=== PATIENT | male | born 1990 | race Caucasian/White ===

== ENCOUNTER 2017-02-11 09:16 | Emergency (ER) | payer MEDICARE, MEDICAID ==
[2017-02-11 09:29] VITALS: BP 137/88; PULSE 97; RESP 20; TEMP 97.6; O2SAT 98
[2017-02-11 09:30] VITALS: BMI 22.4
--- NOTE | 2017-02-11 10:06 | ED PDOC ---
HPI: Back Time Seen by Provider: 02/11/17 09:36 Chief Complaint (Nursing): Back Pain Chief Complaint (Provider): Back Pain History Per: Patient History/Exam Limitations: no limitations Onset/Duration Of Symptoms: Days Current Symptoms Are (Timing): Still Present Quality Of Discomfort: "Pain" Severity: Moderate Previous Symptoms: None Associated Symptoms: None Exacerbating Factor(s): Movement Additional Complaint(s): Patient is a 27 year old male who presents to ED for back pain since yesterday. Patient states he was helping to move furniture, slipped with immediate left sided lower back pain. Evaluated initially at [facility] yesterday, prescribed Tramadol and Motrin but states no relief from medication. Denies urinary changes , radiation, numbness or weakness. Past Medical History Reviewed: Historical Data, Nursing Documentation, Vital Signs Vital Signs: Last Vital Signs Temp 97.6 F 02/11/17 09:28 Pulse 97 H 02/11/17 09:28 Resp 20 02/11/17 09:28 BP 137/88 02/11/17 09:28 Pulse Ox 98 02/11/17 09:28 - Medical History PMH: Asthma Denies: HTN (pt denies) - Surgical History Surgical History: No Surg Hx - Family History Family History: States: Unknown Family Hx - Living Arrangements Living Arrangements: With Family - Immunization History Hx Tetanus Toxoid Vaccination: Yes Hx Influenza Vaccination: No Hx Pneumococcal Vaccination: No - Home Medications Home Medications: Ambulatory Orders Medication Instructions Recorded Albuterol HFA [Ventolin HFA 90 1 puff IH BID PRN 11/24/16 mcg/actuation (8 g)] Montelukast [Singulair] 10 mg PO DAILY 11/24/16 Ibuprofen [Motrin Tab] 600 mg PO Q8 #30 tab 12/05/16 Ibuprofen [Motrin] 600 mg PO Q6 #25 tab 02/10/17 Cyclobenzaprine [Cyclobenzaprine 10 mg PO TID #30 tab 02/11/17 HCl] Ketorolac Tromethamine [Toradol] 10 mg PO Q6H PRN #19 tab 02/11/17 - Allergies Allergies/Adverse Reactions: Allergies Allergy/AdvReac Type Severity Reaction Status Date / Time cat dander Allergy Verified 12/05/16 19:32 FISH Allergy RASH Verified 12/05/16 19:32 Review of Systems ROS Statement: Except As Marked, All Systems Reviewed And Found Negative Constitutional: Negative for: Weakness Cardiovascular: Negative for: Chest Pain Respiratory: Negative for: Shortness of Breath Gastrointestinal: Negative for: Abdominal Pain Genitourinary Male: Negative for: Dysuria, Frequency, Incontinence Musculoskeletal: Positive for: Back Pain. Negative for: Leg Pain Neurological: Negative for: Weakness, Numbness Physical Exam - Reviewed Nursing Documentation Reviewed: Yes Vital Signs Reviewed: Yes - Physical Exam Appears: Positive for: Non-toxic, No Acute Distress Skin: Positive for: Normal Color, Warm Eye Exam: Positive for: Normal appearance Neck: Positive for: Normal, Painless ROM Cardiovascular/Chest: Positive for: Regular Rate, Rhythm. Negative for: Murmur Respiratory: Positive for: Normal Breath Sounds. Negative for: Respiratory Distress Gastrointestinal/Abdominal: Positive for: Normal Exam. Negative for: Tenderness Back: Positive for: L CVA Tenderness (mild), R CVA Tenderness (mild ), Other ( mild left paraspinal tenderness ). Negative for: Decreased ROM, Muscle Spasm Extremity: Positive for: Normal ROM. Negative for: Pedal Edema, Calf Tenderness Neurologic/Psych: Positive for: Alert, Oriented - Laboratory Results Urine dip results: Positive for: Leukocyte Esterase - ECG O2 Sat by Pulse Oximetry: 98 (RA) Pulse Ox Interpretation: Normal - Radiology X-Ray: Viewed By Me, Read By Radiologist X-Ray Interpretation: No Acute Disease - Progress Re-evaluation Time: 11:22 Condition: Re-examined, Improving,but remains with symptoms Medical Decision Making Medical Decision Making: Time: 944 Initial impression: Back pain Initial plan: -- Urine dip -- Lumbar Spine -- Flexeril and Toradol Scribe Attestation: Documented by Bia Adames acting as a scribe for Lea Pardo MD MD Scribe Attestation: All medical record entries made by the Scribe were at my direction and personally dictated by me. I have reviewed the chart and agree that the record accurately reflects my personal performance of the history, physical exam, medical decision making, and the department course for this patient. I have also personally directed, reviewed, and agree with the discharge instructions and disposition. Disposition - Clinical Impression Clinical Impression: Strain, back - Patient ED Disposition Is Patient to be Admitted: No Doctor Will See Patient In The: Office Counseled Patient/Family Regarding: Diagnosis, Need For Followup, Rx Given - Disposition Referrals: [facility] [Outside] [facility] [Outside] [facility] [Outside] Disposition: Routine/Home Disposition Time: 11:24 Condition: IMPROVED Prescriptions: Cyclobenzaprine [Cyclobenzaprine HCl] 10 mg PO TID #30 tab Ketorolac Tromethamine [Toradol] 10 mg PO Q6H PRN #19 tab PRN Reason: Pain, Moderate (4-7) Instructions: Back Exercises (ED) Forms: [facility] ED School/Work Excuse - POA Present On Arrival: None
--- NOTE | 2017-02-11 10:38 | RAD ---
PROCEDURE: Radiographs of the Lumbar Spine. HISTORY: left side strain since yesterday COMPARISON: None available. FINDINGS: BONES: Mild curvature of the lumbar spine convex to the left. No listhesis. No displaced fracture identified. DISC SPACES: Unremarkable. OTHER FINDINGS: Mild constipation. IMPRESSION: Mild scoliosis. No acute displaced fracture or subluxation identified. Mild constipation.
[2017-02-11 11:13] LABS: URINE BILIRUBIN NEGATIVE (NEGATIVE); URINE BLOOD NEGATIVE (NEGATIVE); URINE COLOR YELLOW (YELLOW); URINE GLUCOSE (UA) NEG (Normal); URINE KETONE NEGATIVE (NEGATIVE); URINE LEUKOCYTE ESTERASE LARGE Leu/uL (Negative); URINE PROTEIN NEGATIVE (NEGATIVE); URINE UROBILINOGEN 0.2-1.0 mg/dL (0.2-1.0); WBC URINE 8 /hpf (0-5)
== END 2017-02-11 11:52 | disposition home or self-care (01) ==
LOC: H.ER 09:16
DX: M54.9 Dorsalgia, unspecified (principal)
CPT/HCPCS: 72114; 81003; 96372; 99282; J1885

== ENCOUNTER 2017-02-24 00:06 | Emergency (ER) | payer MEDICARE, MEDICAID ==
[2017-02-24 00:06] VITALS: BMI 22.4
[2017-02-24 00:18] VITALS: BP 133/72; PULSE 95; RESP 18; TEMP 97.8; O2SAT 100
[2017-02-24] MEDS ORDERED: Albuterol-Ipratrop 3 mg / 0.5 (3 ml) UD IH STA ×2 (01:51→01:54)
--- NOTE | 2017-02-24 01:54 | ED PDOC ---
HPI: CCC, URI, Sore Throat Time Seen by Provider: 02/24/17 00:55 Chief Complaint (Nursing): Cough, Cold, Congestion Chief Complaint (Provider): flu-like symptoms History Per: Patient History/Exam Limitations: no limitations Onset/Duration Of Symptoms: Days (5) Current Symptoms Are (Timing): Still Present Additional History Per: Patient Additional Complaint(s): 27 y/o male history of asthma presents with flu-like symptoms x 5 days. Patient notes productive cough, congestion, and throat pain. Mother notes patietn to have fever yesterday, Advil given. Denies headache, ear pain, nausea /vomiting, abdominal pain, changes in bowel movements, recent travel, sick contacts. Past Medical History Reviewed: Historical Data, Nursing Documentation, Vital Signs Vital Signs: Last Vital Signs Temp 97.8 F 02/24/17 00:16 Pulse 95 H 02/24/17 00:16 Resp 18 02/24/17 00:16 BP 133/72 02/24/17 00:16 Pulse Ox 100 02/24/17 01:54 - Medical History PMH: Asthma Denies: HTN (pt denies) - Surgical History Surgical History: No Surg Hx - Family History Family History: States: Unknown Family Hx - Living Arrangements Living Arrangements: With Family - Immunization History Hx Tetanus Toxoid Vaccination: Yes Hx Influenza Vaccination: No Hx Pneumococcal Vaccination: No - Home Medications Home Medications: Ambulatory Orders Medication Instructions Recorded Albuterol HFA [Ventolin HFA 90 1 puff IH BID PRN 11/24/16 mcg/actuation (8 g)] Montelukast [Singulair] 10 mg PO DAILY 11/24/16 Ibuprofen [Motrin Tab] 600 mg PO Q8 #30 tab 12/05/16 Ibuprofen [Motrin] 600 mg PO Q6 #25 tab 02/10/17 Cyclobenzaprine [Cyclobenzaprine 10 mg PO TID #30 tab 02/11/17 HCl] Ketorolac Tromethamine [Toradol] 10 mg PO Q6H PRN #19 tab 02/11/17 Albuterol 0.083% [Albuterol 1 vial IH Q6 PRN #30 neb 02/24/17 Sulfate 3 Ml] Albuterol HFA [Ventolin HFA 90 1 - 2 puff IH Q4 PRN #1 inh 02/24/17 mcg/actuation (8 g)] Azithromycin [Zithromax] 250 mg PO DAILY #1 packet 02/24/17 Mask, Face [Nebulizer Aerosol Mask 1 dev INH PRN PRN #1 dev 02/24/17 Adult] Nebulizer [Compact Compressor 1 dev XX Q6 PRN #1 dev 02/24/17 Nebulizer] Prednisone 50 mg PO DAILY #4 tablet 02/24/17 - Allergies Allergies/Adverse Reactions: Allergies Allergy/AdvReac Type Severity Reaction Status Date / Time cat dander Allergy Verified 12/05/16 19:32 FISH Allergy RASH Verified 12/05/16 19:32 Review of Systems ROS Statement: Except As Marked, All Systems Reviewed And Found Negative Constitutional: Positive for: Fever ENT: Positive for: Nose Congestion, Throat Pain Respiratory: Positive for: Cough, Wheezing Physical Exam - Reviewed Nursing Documentation Reviewed: Yes Vital Signs Reviewed: Yes - Physical Exam Appears: Positive for: Well, Non-toxic, No Acute Distress Head Exam: Positive for: ATRAUMATIC, NORMAL INSPECTION, NORMOCEPHALIC Skin: Positive for: Normal Color Eye Exam: Positive for: Normal appearance ENT: Positive for: Normal ENT Inspection Cardiovascular/Chest: Positive for: Regular Rate, Rhythm Respiratory: Positive for: Rhonchi, Wheezing Gastrointestinal/Abdominal: Positive for: Normal Exam Back: Positive for: Normal Inspection Extremity: Positive for: Normal ROM Neurologic/Psych: Positive for: Alert, Oriented - ECG O2 Sat by Pulse Oximetry: 100 - Radiology X-Ray: Viewed By [place] X-Ray Interpretation: No Acute Disease - Progress ED Course And Treament: chest xray, strep, flu, duonebs, prednisone PO On re-eval, patient states he is feeling better. Patient educated on findings, discharged with rx zpak, prednisone, albuterol hfa , albuterol neb. Advised follow up PMD 2-3 days. Ibuprofen PRN fever. Return to ED for worsening/concerning symptoms. Disposition - Clinical Impression Clinical Impression: Strep pharyngitis, Bronchitis - Patient ED Disposition Is Patient to be Admitted: No Counseled Patient/Family Regarding: Studies Performed, Diagnosis, Need For Followup, Rx Given - Disposition Referrals: Shelly Phillips MD [Primary Care Provider] - Disposition: Routine/Home Disposition Time: 03:40 Condition: IMPROVED Prescriptions: Albuterol 0.083% [Albuterol Sulfate 3 Ml] 1 vial IH Q6 PRN #30 neb PRN Reason: Wheezing Nebulizer [Compact Compressor Nebulizer] 1 dev XX Q6 PRN #1 dev PRN Reason: Wheezing Mask, Face [Nebulizer Aerosol Mask Adult] 1 dev INH PRN PRN #1 dev PRN Reason: Wheezing Prednisone 50 mg PO DAILY #4 tablet Albuterol HFA [Ventolin HFA 90 mcg/actuation (8 g)] 1 - 2 puff IH Q4 PRN #1 inh PRN Reason: Wheezing Azithromycin [Zithromax] 250 mg PO DAILY #1 packet Instructions: Strep Throat (ED), Acute Bronchitis (ED)
[2017-02-24] MEDS ORDERED: Albuterol-Ipratrop 3 mg / 0.5 (3 ml) UD ONE (02:02)
--- NOTE | 2017-02-24 09:45 | RAD ---
HISTORY: cough COMPARISON: No prior. TECHNIQUE: Chest PA and lateral FINDINGS: LUNGS: Peribronchial thickening is seen consistent with bronchitis. PLEURA: No significant pleural effusion identified. No pneumothorax apparent. CARDIOVASCULAR: Normal. OSSEOUS STRUCTURES: No significant abnormalities. VISUALIZED UPPER ABDOMEN: Normal. OTHER FINDINGS: None. IMPRESSION: Peribronchial thickening
== END 2017-02-24 03:44 | disposition home or self-care (01) ==
LOC: H.ER 00:06
DX: J40 Bronchitis, not specified as acute or chronic (principal); J02.0 Streptococcal pharyngitis; Z87.09 Personal history of other diseases of the respiratory system

== ENCOUNTER 2017-03-15 22:05 | Emergency (ER) | payer MEDICARE, MEDICAID ==
[2017-03-15 22:07] VITALS: BMI 22.4
[2017-03-15 22:19] VITALS: BP 130/77; PULSE 96; RESP 18; TEMP 98.3; O2SAT 99
--- NOTE | 2017-03-15 22:25 | ED PDOC ---
Lower Extremity Pain/Injury Time Seen by Provider: 03/15/17 22:22 Chief Complaint (Nursing): Lower Extremity Problem/Injury Additional Complaint(s): 27-year-old male presents to emergency Department with pain to right ankle status post twisting injury earlier at work today. Patient able to walk and bear weight but has pain when doing so. No medication taken for pain relief prior to arrival. He denies numbness or tingling to the affected area. Past Medical History Reviewed: Historical Data, Nursing Documentation, Vital Signs Vital Signs: Last Vital Signs Temp 98.3 F 03/15/17 22:16 Pulse 96 H 03/15/17 22:16 Resp 18 03/15/17 22:16 BP 130/77 03/15/17 22:16 Pulse Ox 99 03/15/17 22:16 - Medical History PMH: No Chronic Diseases - Surgical History Surgical History: No Surg Hx - Family History Family History: States: No Known Family Hx - Living Arrangements Living Arrangements: With Family - Social History Current smoker - smoking cessation education provided: No Alcohol: None Drugs: Denies - Home Medications Home Medications: Ambulatory Orders Medication Instructions Recorded Albuterol HFA [Ventolin HFA 90 1 puff IH BID PRN 11/24/16 mcg/actuation (8 g)] Montelukast [Singulair] 10 mg PO DAILY 11/24/16 Ibuprofen [Motrin Tab] 600 mg PO Q8 #30 tab 12/05/16 Ibuprofen [Motrin] 600 mg PO Q6 #25 tab 02/10/17 Cyclobenzaprine [Cyclobenzaprine 10 mg PO TID #30 tab 02/11/17 HCl] Ketorolac Tromethamine [Toradol] 10 mg PO Q6H PRN #19 tab 02/11/17 Albuterol 0.083% [Albuterol 1 vial IH Q6 PRN #30 neb 02/24/17 Sulfate 3 Ml] Albuterol HFA [Ventolin HFA 90 1 - 2 puff IH Q4 PRN #1 inh 02/24/17 mcg/actuation (8 g)] Azithromycin [Zithromax] 250 mg PO DAILY #1 packet 02/24/17 Mask, Face [Nebulizer Aerosol Mask 1 dev INH PRN PRN #1 dev 02/24/17 Adult] Nebulizer [Compact Compressor 1 dev XX Q6 PRN #1 dev 02/24/17 Nebulizer] Prednisone 50 mg PO DAILY #4 tablet 02/24/17 Ibuprofen [Motrin] 600 mg PO Q6 PRN #15 tab 03/15/17 - Allergies Allergies/Adverse Reactions: Allergies Allergy/AdvReac Type Severity Reaction Status Date / Time cat dander Allergy Verified 12/05/16 19:32 FISH Allergy RASH Verified 12/05/16 19:32 Wells Criteria for PE - Wells Criteria for Pulmonary Embolism Clinical Signs and Symptoms of DVT: No P.E is #1 Diagnosis, or Equally Likely: No Heart Rate >100: No Immobilization at least 3 days;Surgery previous 4 weeks: No Previous, objectively diagnosed PE or DVT: No Hemoptysis: No Malignancy w/treatment within 6 months, or palliative: No Total Score: 0 Review of Systems ROS Statement: Except As Marked, All Systems Reviewed And Found Negative Musculoskeletal: Positive for: Other (right ankle pain) Physical Exam - Reviewed Nursing Documentation Reviewed: Yes Vital Signs Reviewed: Yes - Physical Exam Appears: Positive for: Well, Non-toxic, No Acute Distress Skin: Negative for: Rash Eye Exam: Positive for: Normal appearance, EOMI, PERRL Cardiovascular/Chest: Positive for: Regular Rate, Rhythm Respiratory: Positive for: Normal Breath Sounds Extremity: Positive for: Other (mild swelling and tenderness right lateral malleolus, full rom with pain, non-tender right foot, no right calf tenderness) Neurologic/Psych: Positive for: Alert, Oriented, Gait (steady) - ECG O2 Sat by Pulse Oximetry: 99 Pulse Ox Interpretation: Normal - Other Rad right ankle x-ray X-Ray: Interpreted by Me, Viewed By Me X-Ray Interpretation: no acute fx or dislocation Medical Decision Making Medical Decision Makin27 year old with right ankle injury Plan: PO motrin for pain X-ray right ankle X-ray negative. Patient feels better after motrin was given. Crutches declined. See procedure note. Rx motrin given along with referral to podiatry. Procedures - Splinting Location: right ankle Pre-Made Type: raul wrap, aircast, ortho shoe Pre-Proc Neuro Vasc Exam: normal Post-Proc Neuro Vasc Exam: normal Disposition - Clinical Impression Clinical Impression: Ankle sprain - Patient ED Disposition Is Patient to be Admitted: No Counseled Patient/Family Regarding: Studies Performed, Diagnosis, Need For Followup, Rx Given - Disposition Referrals: Podiatry Clinic [Outside] Disposition: Routine/Home Disposition Time: 22:56 Condition: STABLE Additional Instructions: Ice, rest and elevate affected area. Take rx meds as directed as needed for pain. Follow up with podiatry clinic in 1-2 days. Prescriptions: Ibuprofen [Motrin] 600 mg PO Q6 PRN #15 tab PRN Reason: Pain, Moderate (4-7) Instructions: Ankle Sprain (ED), Ankle Stirrup Splint (ED) Forms: [facility] ED School/Work Excuse
--- NOTE | 2017-03-16 11:51 | RAD ---
PROCEDURE: Right Ankle Radiographs. HISTORY: trauma COMPARISON: None FINDINGS: BONES: No acute fracture. Smooth ossific density adjacent to tip of lateral malleolus may reflect old ununited fracture fragment or ununited secondary ossification center. JOINTS: Normal. No osteoarthritis. Ankle mortise maintained. Talar dome intact SOFT TISSUES: Mild lateral soft tissue swelling is noted. OTHER FINDINGS: None. IMPRESSION: Mild lateral soft tissue swelling. No acute fracture identified.
== END 2017-03-15 23:00 | disposition home or self-care (01) ==
LOC: H.ER 22:05
DX: S93.401A Sprain of unspecified ligament of right ankle, initial encounter (principal); X50.1XXA Overexertion from prolonged static or awkward postures, initial encounter; Y93.9 Activity, unspecified

== ENCOUNTER 2018-06-20 20:19 | Emergency (ER) | payer MEDICAID, MEDICARE, OTHER ==
[2018-06-20 20:20] VITALS: BMI 22.4
--- NOTE | 2018-06-20 21:08 | ED PDOC ---
HPI: CCC, URI, Sore Throat Time Seen by Provider: 06/20/18 20:58 Chief Complaint (Nursing): Shortness Of Breath Chief Complaint (Provider): cough, wheezing History Per: Patient History/Exam Limitations: no limitations Onset/Duration Of Symptoms: Days (2) Current Symptoms Are (Timing): Still Present Additional Complaint(s): 28 y/o male history of asthma presents for evaluation of productive cough and wheezing x 2 days. Patient states he ran out of his albuterol pump. Cough productive of yellow sputum. Denies fever, nasal congestion, chest pain, shortness of breath, palpitations, recent travel, sick contacts. Past Medical History Reviewed: Historical Data, Nursing Documentation, Vital Signs Vital Signs: Last Vital Signs Temp 98 F 06/20/18 20:28 Pulse 85 06/20/18 20:28 Resp 18 06/20/18 21:30 BP 121/67 06/20/18 20:28 Pulse Ox 99 06/20/18 21:51 - Medical History PMH: Asthma Denies: HTN (pt denies) - Surgical History Surgical History: No Surg Hx - Family History Family History: States: Unknown Family Hx - Social History Current smoker - smoking cessation education provided: Yes SMOKER/PACKS PER DAY:: 1 - Immunization History Hx Tetanus Toxoid Vaccination: Yes Hx Influenza Vaccination: No Hx Pneumococcal Vaccination: No - Home Medications Home Medications: Ambulatory Orders Medication Instructions Recorded Albuterol HFA [Ventolin HFA 90 2 puff IH [id number] PRN #1 puff 06/14/18 mcg/actuation (8 g)] Calamine/Pramoxine [Caladryl] 2 ml TP QID PRN #1 bottle 06/14/18 DiphenhydrAMINE [Benadryl] 25 mg PO Q6 #20 cap 06/14/18 predniSONE [Prednisone] 40 mg PO DAILY #8 tab 06/14/18 Albuterol HFA [Ventolin HFA 90 1 puff IH Q4 PRN #1 inh 06/20/18 mcg/actuation (8 g)] predniSONE [Prednisone] 60 mg PO DAILY #12 tab 06/20/18 - Allergies Allergies/Adverse Reactions: Allergies Allergy/AdvReac Type Severity Reaction Status Date / Time cat dander Allergy RASH Verified 06/20/18 20:28 FISH Allergy RASH Verified 06/20/18 20:28 Review of Systems ROS Statement: Except As Marked, All Systems Reviewed And Found Negative Respiratory: Positive for: Cough, Sputum (yellow), Wheezing Physical Exam - Reviewed Nursing Documentation Reviewed: Yes Vital Signs Reviewed: Yes - Physical Exam Appears: Positive for: Well, Non-toxic, No Acute Distress Head Exam: Positive for: ATRAUMATIC, NORMAL INSPECTION, NORMOCEPHALIC Skin: Positive for: Normal Color Eye Exam: Positive for: Normal appearance ENT: Positive for: Normal ENT Inspection Cardiovascular/Chest: Positive for: Regular Rate, Rhythm Respiratory: Positive for: Rhonchi, Wheezing Gastrointestinal/Abdominal: Positive for: Normal Exam Back: Positive for: Normal Inspection Extremity: Positive for: Normal ROM Neurologic/Psych: Positive for: Alert, Oriented (x3) - ECG O2 Sat by Pulse Oximetry: 99 - Radiology X-Ray: Viewed By [place] X-Ray Interpretation: No Acute Disease - Progress ED Course And Treament: duoneb x2 On re-eval, patient states he is feeling better; slight wheezing noted Patient educated on findings, discharged with rx Prednisone (dose given in ED), albuterol HFA Advised follow up PMD 2-3 days Return precautions given Disposition - Clinical Impression Clinical Impression: Asthmatic bronchitis - Patient ED Disposition Is Patient to be Admitted: No Counseled Patient/Family Regarding: Studies Performed, Diagnosis, Need For Followup, Rx Given - Disposition Referrals: [facility] [Outside] Disposition: Routine/Home Disposition Time: 22:20 Condition: IMPROVED Prescriptions: Albuterol HFA [Ventolin HFA 90 mcg/actuation (8 g)] 1 puff IH Q4 PRN #1 inh PRN Reason: Wheezing predniSONE [Prednisone] 60 mg PO DAILY #12 tab Instructions: Asthma in Adults, Acute Bronchitis Forms: [employer] ([place] Islander)
[2018-06-20] MEDS: Albuterol-Ipratrop 3 mg / 0.5 (3 ml) UD IH STA (21:15)
[2018-06-20] MEDS ORDERED: Albuterol-Ipratrop 3 mg / 0.5 (3 ml) UD ONE (21:15)
[2018-06-20 22:34] VITALS: BP 129/79; PULSE 88; RESP 16; TEMP 98.2; O2SAT 98
--- NOTE | 2018-06-21 10:31 | RAD ---
HISTORY: COMPARISON: 02/24/2027. TECHNIQUE: Chest PA and lateral FINDINGS: LINES AND TUBES: None. LUNG AND PLEURA: The lungs are well inflated. There is airspace disease in the right lower lobe. The left lung is clear. There is a stable benign calcified granuloma in the right upper lobe. No pleural effusion or pneumothorax. HEART AND MEDIASTINUM: The heart is not enlarged. The hilar and mediastinal contours are within normal limits. SKELETAL STRUCTURES: The bony structures are within normal limits for the patient's age. VISUALIZED UPPER ABDOMEN: Normal. OTHER FINDINGS: None. IMPRESSION: Airspace disease in the right lower lobe may represent subsegmental atelectasis however superimposed pneumonia cannot be excluded. Follow-up after medical management is recommended to ensure complete resolution.
== END 2018-06-20 22:34 | disposition home or self-care (01) ==
LOC: H.ER 20:19
DX: J20.9 Acute bronchitis, unspecified (principal); F17.210 Nicotine dependence, cigarettes, uncomplicated

== ENCOUNTER 2018-07-18 21:20 | Emergency (ER) | payer MEDICARE ==
[2018-07-18 21:20] VITALS: BMI 22.4
[2018-07-18 22:06] VITALS: BP 114/68; PULSE 88; RESP 20; TEMP 97.8; O2SAT 97
[2018-07-18] MEDS ORDERED: Albuterol-Ipratrop 3 mg / 0.5 (3 ml) UD INH STA (22:59)
--- NOTE | 2018-07-18 23:03 | ED PDOC ---
HPI: General Adult Time Seen by Provider: 07/18/18 22:11 Chief Complaint (Nursing): Cough, Cold, Congestion Chief Complaint (Provider): Wheezing x 1 day History Per: Patient History/Exam Limitations: no limitations Onset/Duration Of Symptoms: Days Have you had recent travel within the past 21 days to any of the following countries: [place], [place], [place] or [place]?: No Current Symptoms Are (Timing): Still Present Additional Complaint(s): 28 yo male with history of asthma presents for evaluation of wheezing. Pt states his asthma is acting up and he does not have an inhaler. No fever/ chills. No cough. Eating and drinking well. Past Medical History Reviewed: Historical Data, Nursing Documentation, Vital Signs Vital Signs: Last Vital Signs Temp 97.8 F 07/18/18 22:03 Pulse 88 07/18/18 22:03 Resp 20 07/18/18 22:03 BP 114/68 07/18/18 22:03 Pulse Ox 97 07/18/18 22:03 - Medical History PMH: Asthma Denies: HTN (pt denies) - Surgical History Surgical History: No Surg Hx - Family History Family History: States: Unknown Family Hx - Immunization History Hx Tetanus Toxoid Vaccination: Yes Hx Influenza Vaccination: No Hx Pneumococcal Vaccination: No - Home Medications Home Medications: Ambulatory Orders Medication Instructions Recorded Albuterol HFA [Ventolin HFA 90 2 puff IH [id number] PRN #1 puff 06/14/18 mcg/actuation (8 g)] Calamine/Pramoxine [Caladryl] 2 ml TP QID PRN #1 bottle 06/14/18 DiphenhydrAMINE [Benadryl] 25 mg PO Q6 #20 cap 06/14/18 predniSONE [Prednisone] 40 mg PO DAILY #8 tab 06/14/18 Albuterol HFA [Ventolin HFA 90 1 puff IH Q4 PRN #1 inh 06/20/18 mcg/actuation (8 g)] predniSONE [Prednisone] 60 mg PO DAILY #12 tab 06/20/18 Albuterol HFA [Ventolin HFA 90 1 puff IH BID PRN #2 unit 07/18/18 mcg/actuation (8 g)] predniSONE [predniSONE Tab] 20 mg PO DAILY #9 tab 07/18/18 - Allergies Allergies/Adverse Reactions: Allergies Allergy/AdvReac Type Severity Reaction Status Date / Time cat dander Allergy RASH Verified 06/20/18 20:28 FISH Allergy RASH Verified 06/20/18 20:28 Review of Systems ROS Statement: Except As Marked, All Systems Reviewed And Found Negative Constitutional: Negative for: Fever, Chills Respiratory: Positive for: Wheezing. Negative for: Shortness of Breath Physical Exam - Reviewed Nursing Documentation Reviewed: Yes Vital Signs Reviewed: Yes - Physical Exam Appears: Positive for: Well, Non-toxic, No Acute Distress Head Exam: Positive for: ATRAUMATIC, NORMAL INSPECTION, NORMOCEPHALIC Skin: Positive for: Normal Color, Warm, DRY Eye Exam: Positive for: Normal appearance ENT: Positive for: Normal ENT Inspection Neck: Positive for: Normal, Painless ROM Respiratory: Positive for: Wheezing. Negative for: Accessory Muscle Use, Respiratory Distress Back: Positive for: Normal Inspection Extremity: Positive for: Normal ROM Neurologic/Psych: Positive for: Alert, Oriented - ECG O2 Sat by Pulse Oximetry: 97 Medical Decision Making Medical Decision Making: Duoneb in ER. Pt feels better on re-evaluation. Disposition - Clinical Impression Clinical Impression: Asthma - Patient ED Disposition Is Patient to be Admitted: No Counseled Patient/Family Regarding: Diagnosis, Need For Followup, Rx Given - Disposition Disposition: Routine/Home Disposition Time: 23:04 Condition: GOOD Prescriptions: Albuterol HFA [Ventolin HFA 90 mcg/actuation (8 g)] 1 puff IH BID PRN #2 unit PRN Reason: Wheezing predniSONE [predniSONE Tab] 20 mg PO DAILY #9 tab Instructions: Asthma in Adults
== END 2018-07-19 | disposition home or self-care (01) ==
LOC: H.ER 21:20
DX: J45.909 Unspecified asthma, uncomplicated (principal)

== ENCOUNTER 2018-07-20 00:25 | Emergency (ER) | payer MEDICARE ==
[2018-07-20 00:25] VITALS: BMI 22.4
[2018-07-20 00:58] VITALS: TEMP 99.3
--- NOTE | 2018-07-20 01:10 | ED PDOC ---
HPI: Asthma Time Seen by Provider: 07/20/18 00:31 Chief Complaint (Nursing): Shortness Of Breath Chief Complaint (Provider): asthma History Per: Patient History/Exam Limitations: no limitations Onset/Duration Of Symptoms: Hrs Current Symptoms Are (Timing): Still Present Associated Symptoms: Dyspnea Precipitating Factors: Ran Out Of Medications Additional Complaint(s): 28 y/o male presents for evaluation of asthma exacerbation x 1 hour. Patient seen yesterday for same; states he has no insurance so he was not able to fill his inhaler and presdnisone prescriptions that were prescribed. Denies fever, cough, chest pain, palpitations, nausea/vomiting, leg pain/swelling. Past Medical History Reviewed: Historical Data, Nursing Documentation, Vital Signs Vital Signs: Last Vital Signs Temp 99.3 F 07/20/18 00:55 Pulse 98 H 07/20/18 00:55 Resp 20 07/20/18 01:03 BP 116/83 07/20/18 00:55 Pulse Ox 100 07/20/18 00:55 - Medical History PMH: Asthma Denies: HTN (pt denies) - Family History Family History: States: Unknown Family Hx - Immunization History Hx Tetanus Toxoid Vaccination: Yes Hx Influenza Vaccination: No Hx Pneumococcal Vaccination: No - Home Medications Home Medications: Ambulatory Orders Medication Instructions Recorded Albuterol HFA [Ventolin HFA 90 2 puff IH [id number] PRN #1 puff 06/14/18 mcg/actuation (8 g)] Calamine/Pramoxine [Caladryl] 2 ml TP QID PRN #1 bottle 06/14/18 DiphenhydrAMINE [Benadryl] 25 mg PO Q6 #20 cap 06/14/18 predniSONE [Prednisone] 40 mg PO DAILY #8 tab 06/14/18 Albuterol HFA [Ventolin HFA 90 1 puff IH Q4 PRN #1 inh 06/20/18 mcg/actuation (8 g)] predniSONE [Prednisone] 60 mg PO DAILY #12 tab 06/20/18 Albuterol HFA [Ventolin HFA 90 1 puff IH BID PRN #2 unit 07/18/18 mcg/actuation (8 g)] predniSONE [predniSONE Tab] 20 mg PO DAILY #9 tab 07/18/18 - Allergies Allergies/Adverse Reactions: Allergies Allergy/AdvReac Type Severity Reaction Status Date / Time cat dander Allergy RASH Verified 06/20/18 20:28 FISH Allergy RASH Verified 06/20/18 20:28 Review of Systems ROS Statement: Except As Marked, All Systems Reviewed And Found Negative Respiratory: Positive for: Shortness of Breath, Wheezing Physical Exam - Reviewed Nursing Documentation Reviewed: Yes Vital Signs Reviewed: Yes - Physical Exam Appears: Positive for: Well, Non-toxic, No Acute Distress Head Exam: Positive for: ATRAUMATIC, NORMAL INSPECTION, NORMOCEPHALIC Skin: Positive for: Normal Color Eye Exam: Positive for: Normal appearance ENT: Positive for: Normal ENT Inspection Cardiovascular/Chest: Positive for: Regular Rate, Rhythm Respiratory: Positive for: Wheezing (diffuse expiratory wheezes). Negative for : Accessory Muscle Use, Crackles, Rales, Rhonchi Gastrointestinal/Abdominal: Positive for: Normal Exam Back: Positive for: Normal Inspection Extremity: Positive for: Normal ROM Neurologic/Psych: Positive for: Alert, Oriented (x3) - ECG O2 Sat by Pulse Oximetry: 100 - Progress ED Course And Treament: Patient given duonebs and prednisone in ED with improvement of symptoms Patient educated on findings, discharged with instructions to fill prescriptions given upon discharge at yesterday's visit Follow up PMD 2-3 days Return precautions given Disposition - Clinical Impression Clinical Impression: Asthma - Patient ED Disposition Is Patient to be Admitted: No Counseled Patient/Family Regarding: Diagnosis, Need For Followup, Rx Given - Disposition Referrals: [facility] [Outside] Disposition: Routine/Home Disposition Time: 02:05 Condition: IMPROVED Additional Instructions: Fill prescriptions provided upon yesterday's discharge Instructions: Asthma in Adults
[2018-07-20] MEDS ORDERED: Albuterol-Ipratrop 3 mg / 0.5 (3 ml) UD ONE (01:16)
[2018-07-20] MEDS: Albuterol-Ipratrop 3 mg / 0.5 (3 ml) UD IH STA ×3 (01:20→01:21)
[2018-07-20 02:55] VITALS: BP 102/54; PULSE 85; RESP 16; O2SAT 95
== END 2018-07-20 03:30 | disposition home or self-care (01) ==
LOC: H.ER 00:25
DX: J45.909 Unspecified asthma, uncomplicated (principal)

== ENCOUNTER 2018-07-31 22:15 | Emergency (ER) | payer MEDICARE ==
[2018-07-31 22:15] VITALS: BMI 22.4
[2018-07-31 22:41] VITALS: PULSE 72; RESP 16; TEMP 98.4; O2SAT 100
--- NOTE | 2018-08-01 00:10 | ED PDOC ---
HPI: General Adult Time Seen by Provider: 07/31/18 23:12 Chief Complaint (Nursing): Weakness/Neurological Deficit Chief Complaint (Provider): weakness History Per: Patient History/Exam Limitations: no limitations Onset/Duration Of Symptoms: Hrs Current Symptoms Are (Timing): Still Present Additional Complaint(s): 28 y/o male self-presents with complaints of weakness x 2 hours. Patient denies fever, headache, nausea/vomiting, cough, chest pain, shortness of breath , palpitations, abdominal pain. H/O bed seeking behavior Past Medical History Reviewed: Historical Data, Nursing Documentation, Vital Signs Vital Signs: Last Vital Signs Temp 98.4 F 07/31/18 22:39 Pulse 72 07/31/18 22:39 Resp 16 07/31/18 22:39 BP 109/69 07/31/18 22:39 Pulse Ox 100 08/01/18 00:10 - Medical History PMH: Asthma Denies: HTN (pt denies) - Family History Family History: States: Unknown Family Hx - Immunization History Hx Tetanus Toxoid Vaccination: Yes Hx Influenza Vaccination: No Hx Pneumococcal Vaccination: No - Home Medications Home Medications: Ambulatory Orders Medication Instructions Recorded Albuterol HFA [Ventolin HFA 90 2 puff IH [id number] PRN #1 puff 06/14/18 mcg/actuation (8 g)] Calamine/Pramoxine [Caladryl] 2 ml TP QID PRN #1 bottle 06/14/18 DiphenhydrAMINE [Benadryl] 25 mg PO Q6 #20 cap 06/14/18 predniSONE [Prednisone] 40 mg PO DAILY #8 tab 06/14/18 Albuterol HFA [Ventolin HFA 90 1 puff IH Q4 PRN #1 inh 06/20/18 mcg/actuation (8 g)] predniSONE [Prednisone] 60 mg PO DAILY #12 tab 06/20/18 Albuterol HFA [Ventolin HFA 90 1 puff IH BID PRN #2 unit 07/18/18 mcg/actuation (8 g)] predniSONE [predniSONE Tab] 20 mg PO DAILY #9 tab 07/18/18 - Allergies Allergies/Adverse Reactions: Allergies Allergy/AdvReac Type Severity Reaction Status Date / Time cat dander Allergy RASH Verified 07/31/18 22:39 FISH Allergy RASH Verified 07/31/18 22:39 Review of Systems ROS Statement: Except As Marked, All Systems Reviewed And Found Negative Constitutional: Positive for: Weakness Physical Exam - Reviewed Nursing Documentation Reviewed: Yes Vital Signs Reviewed: Yes - Physical Exam Appears: Positive for: Well, Non-toxic, Uncomfortable (sleeping) Head Exam: Positive for: ATRAUMATIC, NORMAL INSPECTION, NORMOCEPHALIC Skin: Positive for: Normal Color Eye Exam: Positive for: Normal appearance ENT: Positive for: Normal ENT Inspection Cardiovascular/Chest: Positive for: Regular Rate, Rhythm Respiratory: Positive for: Normal Breath Sounds Gastrointestinal/Abdominal: Positive for: Normal Exam Back: Positive for: Normal Inspection Extremity: Positive for: Normal ROM Neurologic/Psych: Positive for: Alert, Oriented (x3) - ECG O2 Sat by Pulse Oximetry: 100 - Progress ED Course And Treament: accucheck Disposition - Clinical Impression Clinical Impression: Weakness - Patient ED Disposition Is Patient to be Admitted: No Counseled Patient/Family Regarding: Studies Performed, Diagnosis, Need For Followup - Disposition Disposition: Routine/Home Disposition Time: 01:35 Condition: IMPROVED Instructions: Weakness (ED)
[2018-08-01 01:45] VITALS: BP 110/74
== END 2018-08-01 01:41 | disposition home or self-care (01) ==
LOC: H.ER 22:15
DX: R53.1 Weakness (principal); J45.909 Unspecified asthma, uncomplicated

== ENCOUNTER 2018-08-30 22:36 | Emergency (ER) | payer MEDICARE ==
[2018-08-30 22:36] VITALS: BMI 22.4
[2018-08-30 22:49] VITALS: O2SAT 98
[2018-08-30] MEDS ORDERED: Albuterol-Ipratrop 3 mg / 0.5 (3 ml) UD INH STA (23:01)
--- NOTE | 2018-08-30 23:55 | ED PDOC ---
HPI: SOB/CHF/COPD Time Seen by Provider: 08/30/18 22:57 Chief Complaint (Nursing): Cough, Cold, Congestion Chief Complaint (Provider): Shortness of breath and cough History Per: Patient History/Exam Limitations: no limitations Onset/Duration Of Symptoms: Days (x1) Current Symptoms Are (Timing): Still Present Associated Symptoms: Productive Cough (yellow phlegm ). denies: Fever, Chills, Chest Pain, Bloody Cough Additional Complaint(s): Jaime Whitney is a 28 year old male, with a past medical history of asthma and substance abuse, who presents to the emergency department complaining of productive cough with yellow phlegm and shortness of breath with wheezing onset for x1 day. Patient is non domicile and well known to ED for multiple visits. Patient does not have an MDI. He denies any fever, chills, hemoptysis or chest pain. No further medical complaints. PMD: None provided. Past Medical History Reviewed: Historical Data, Nursing Documentation, Vital Signs Vital Signs: Last Vital Signs Temp 99.2 F 08/30/18 22:47 Pulse 97 H 08/30/18 22:47 Resp 22 08/30/18 22:47 BP 116/73 08/30/18 22:47 Pulse Ox 98 08/30/18 22:47 - Medical History PMH: Asthma Denies: HTN (pt denies) - Surgical History Surgical History: No Surg Hx - Family History Family History: States: Unknown Family Hx - Social History Current smoker - smoking cessation education provided: Yes (Heavy smoker >10 cigarettes daily) Alcohol: None Drugs: Other - Immunization History Hx Tetanus Toxoid Vaccination: Yes Hx Influenza Vaccination: No Hx Pneumococcal Vaccination: No - Home Medications Home Medications: Ambulatory Orders Medication Instructions Recorded Albuterol HFA [Ventolin HFA 90 2 puff IH [id number] PRN #1 puff 06/14/18 mcg/actuation (8 g)] Calamine/Pramoxine [Caladryl] 2 ml TP QID PRN #1 bottle 06/14/18 DiphenhydrAMINE [Benadryl] 25 mg PO Q6 #20 cap 06/14/18 predniSONE [Prednisone] 40 mg PO DAILY #8 tab 06/14/18 Albuterol HFA [Ventolin HFA 90 1 puff IH Q4 PRN #1 inh 06/20/18 mcg/actuation (8 g)] predniSONE [Prednisone] 60 mg PO DAILY #12 tab 06/20/18 Albuterol HFA [Ventolin HFA 90 1 puff IH BID PRN #2 unit 07/18/18 mcg/actuation (8 g)] predniSONE [predniSONE Tab] 20 mg PO DAILY #9 tab 07/18/18 Albuterol HFA [Ventolin HFA 90 1 - 2 puff IH Q6 PRN #1 inhaler 08/31/18 mcg/actuation (8 g)] predniSONE [predniSONE Tab] 60 mg PO QAM #12 tab 08/31/18 - Allergies Allergies/Adverse Reactions: Allergies Allergy/AdvReac Type Severity Reaction Status Date / Time cat dander Allergy RASH Verified 08/30/18 22:45 FISH Allergy RASH Verified 08/30/18 22:45 Review of Systems ROS Statement: Except As Marked, All Systems Reviewed And Found Negative Constitutional: Negative for: Fever, Chills Cardiovascular: Negative for: Chest Pain Respiratory: Positive for: Cough (productive with yellow phlegm), Shortness of Breath, Wheezing Physical Exam - Reviewed Nursing Documentation Reviewed: Yes Vital Signs Reviewed: Yes - Physical Exam Appears: Positive for: In Acute Distress (mild respiratory distress) Head Exam: Positive for: ATRAUMATIC, NORMAL INSPECTION, NORMOCEPHALIC Skin: Positive for: Normal Color, Warm, Dry Eye Exam: Positive for: Normal appearance, EOMI, PERRL Neck: Positive for: Painless ROM Cardiovascular/Chest: Positive for: Regular Rate, Rhythm. Negative for: Murmur Respiratory: Positive for: Wheezing (bilateral diffused expiratory), Respiratory Distress (mild) Gastrointestinal/Abdominal: Positive for: Normal Exam, Soft. Negative for: Tenderness Back: Positive for: Normal Inspection. Negative for: L CVA Tenderness, R CVA Tenderness, Vertebral Tenderness Extremity: Positive for: Normal ROM (upper and lower extremities). Negative for: Deformity, Swelling Neurologic/Psych: Positive for: Alert, Oriented, Gait (steady) - ECG O2 Sat by Pulse Oximetry: 98 (RA) Pulse Ox Interpretation: Normal Medical Decision Making Medical Decision Making: Time: 22:57 Initial Impression: 28 y/o male with asthma exacerbation Initial Plan: --Duoneb 9 ml INH --prednisone tab 60 mg PO --Reevaluation 01:35 -Patient reports markedly improvement of symptoms. Patient requires no further treatment in the ED at this time and is medically stable for discharge. Diagnosis of asthma exacerbation. ----- Scribe Attestation: Documented by Salazar Echavarria, acting as a scribe for Selwyn Rivas MD. Provider Scribe Attestation: All medical record entries made by the Scribe were at my direction and personally dictated by me. I have reviewed the chart and agree that the record accurately reflects my personal performance of the history, physical exam, medical decision making, and the department course for this patient. I have also personally directed, reviewed, and agree with the discharge instructions and disposition. Disposition - Clinical Impression Clinical Impression: Asthma - Disposition Disposition: Routine/Home Disposition Time: 01:35 Condition: IMPROVED Prescriptions: Albuterol HFA [Ventolin HFA 90 mcg/actuation (8 g)] 1 - 2 puff IH Q6 PRN #1 inhaler PRN Reason: Shortness Of Breath predniSONE [predniSONE Tab] 60 mg PO QAM #12 tab Instructions: Asthma in Adults Forms: [employer] (Serbian)
[2018-08-31] MEDS ORDERED: guaiFENesin 100 mg/5 ml Syrup UD PO STA (01:11)
[2018-08-31] MEDS ORDERED: guaiFENesin 100 mg/5 ml Syrup UD ONE (01:17)
[2018-08-31 02:13] VITALS: BP 115/63; PULSE 63; RESP 17; TEMP 98
== END 2018-08-31 01:30 | disposition home or self-care (01) ==
LOC: H.ER 22:36
DX: J45.909 Unspecified asthma, uncomplicated (principal); F17.210 Nicotine dependence, cigarettes, uncomplicated

== ENCOUNTER 2018-09-03 14:55 | Emergency (ER) | payer MEDICAID, MEDICARE, OTHER ==
[2018-09-03 14:55] VITALS: BMI 22.4
[2018-09-03 14:59] VITALS: BP 132/75; PULSE 89; RESP 16; TEMP 97.6; O2SAT 95
[2018-09-03] MEDS ORDERED: Albuterol-Ipratrop 3 mg / 0.5 (3 ml) UD INH STA (15:04)
[2018-09-03] MEDS ORDERED: Albuterol HFA 90 mcg/actuation (8 g) INH STA (15:07)
--- NOTE | 2018-09-03 15:08 | ED PDOC ---
Addendum entered and electronically signed by Angela Lentz PA 09/03/18 16:11: Disposition - Clinical Impression Clinical Impression: Asthma exacerbation - Disposition Referrals: [facility] [Outside] Disposition: Left W/O Treatment (Patient left emergency room before receiving discharge paperwork and prescriptions.) Disposition Time: 15:46 Condition: IMPROVED Additional Instructions: Stop smoking!!!! Take rx meds as directed. Follow up with clinic in 2-3 days. Prescriptions: Prednisone 50 mg PO DAILY #5 tablet Instructions: Asthma in Adults Forms: [employer] (Nauruan) Original Note: History of Present Illness History of Present Illness: Jaime Whitney is a 28 year old male with a past medical history of asthma who is presenting to the emergency room for evaluation of asthma exacerbation onset a few days ago. Patient states that he last used his Albuterol pump last week. He states he is currently homeless and can't afford any medications. PMD: none <Angela Lentz - Last Filed: 09/03/18 16:11> HPI: Influenza Chief Complaint (Provider): asthma History Per: Patient <Angela Lentz - Last Filed: 09/03/18 16:11> <Fadia Sadler - Last Filed: 09/04/18 00:02> Time Seen by Provider: 09/03/18 15:00 Chief Complaint: Cough, Cold, Congestion Past Medical History Reviewed: Historical Data, Nursing Documentation, Vital Signs Vital Signs: Last Vital Signs Temp 97.6 F 09/03/18 14:57 Pulse 89 09/03/18 14:57 Resp 16 09/03/18 14:57 BP 132/75 09/03/18 14:57 Pulse Ox 95 09/03/18 14:57 - Medical History PMH: Asthma - Surgical History Surgical History: No Surg Hx - Family History Family History: States: No Known Family Hx - Living Arrangements Living Arrangements: Other (non-domiciled) - Social History Current smoker - smoking cessation education provided: Yes (1 pack a day) Alcohol: None Drugs: Denies <Angela Lentz - Last Filed: 09/03/18 16:11> Vital Signs: Last Vital Signs Temp 97.6 F 09/03/18 14:57 Pulse 89 09/03/18 14:57 Resp 16 09/03/18 14:57 BP 132/75 09/03/18 14:57 Pulse Ox 95 09/03/18 15:52 <Fadia Sadler - Last Filed: 09/04/18 00:02> - Home Medications Home Medications: Ambulatory Orders Medication Instructions Recorded Darrel 250-50 [place] 09/02/18 RX: Prednisone 50 mg PO DAILY #5 tablet 09/03/18 - Allergies Allergies/Adverse Reactions: Allergies Allergy/AdvReac Type Severity Reaction Status Date / Time cat dander Allergy RASH Verified 09/02/18 02:36 FISH Allergy RASH Verified 09/02/18 02:36 Review of Systems ROS Statement: Except As Marked, All Systems Reviewed And Found Negative Constitutional: Negative for: Fever Respiratory: Positive for: Cough, Shortness of Breath, Wheezing Gastrointestinal: Negative for: Nausea, Vomiting Neurological: Negative for: Headache, Dizziness <Angela Lentz - Last Filed: 09/03/18 16:11> Physical Exam - Reviewed Nursing Documentation Reviewed: Yes Vital Signs Reviewed: Yes - Physical Exam Appears: Positive for: Well, Non-toxic, No Acute Distress Head Exam: Positive for: ATRAUMATIC, NORMAL INSPECTION, NORMOCEPHALIC Skin: Positive for: Normal Color. Negative for: Rash Eye Exam: Positive for: Normal appearance Cardiovascular/Chest: Positive for: Regular Rate, Rhythm. Negative for: Murmur Respiratory: Positive for: Wheezing (bilateral inspiratory and expiratory wheezing) Extremity: Positive for: Normal ROM. Negative for: Pedal Edema Neurologic/Psych: Positive for: Alert, Oriented. Negative for: Motor/Sensory Deficits <Angela Lentz - Last Filed: 09/03/18 16:11> Medical Decision Making Medical Decision Making: Time: 15:04 Impression: 28 year old male with asthma exacerbation Plan: --Duoneb 3 ml INH --Ventolin 1 puff INH --PredniSONE 60 mg PO --Nebulizer treatment --Peak Flow Pre/Post Tx DuoNeb 1 given, pre-peak flow 250, post peak flow 350, patient reports improvement. Patient given albuterol inhaler in ED. Prescription for prednisone provided. Smoking cessation instructions given. Patient was referred to clinic for follow up. -------- --------- Scribe Attestation: Documented by Veronica Da Silva, acting as a scribe for Angela Lentz PA-C. Provider Scribe Attestation: All medical record entries made by the Scribe were at my direction and personally dictated by me. I have reviewed the chart and agree that the record accurately reflects my personal performance of the history, physical exam, medical decision making, and the department course for this patient. I have also personally directed, reviewed, and agree with the discharge instructions and d isposition. <Angela Lentz - Last Filed: 09/03/18 16:11> - ECG O2 Sat by Pulse Oximetry: 95 Pulse Ox Interpretation: Normal <Angela Lentz - Last Filed: 09/03/18 16:11> Disposition - Patient ED Disposition Is Patient to be Admitted: No Counseled Patient/Family Regarding: Diagnosis, Need For Followup, Rx Given - Disposition Disposition: Routine/Home Disposition Time: 15:46 <Angela Lentz - Last Filed: 09/03/18 16:11> <Fadia Sadler - Last Filed: 09/04/18 00:02> - Clinical Impression Clinical Impression: Asthma exacerbation - Disposition Referrals: [facility] [Outside] Condition: IMPROVED Additional Instructions: Stop smoking!!!! Take rx meds as directed. Follow up with clinic in 2-3 days. Prescriptions: RX: Prednisone 50 mg PO DAILY #5 tablet Instructions: Asthma in Adults Forms: [employer] [facility] (Nauruan) Attending/Attestation - Attestation I have personally seen and examined this patient.: No I have reviewed all pertinent clinical information: Yes <Fadia Sadler - Last Filed: 09/04/18 00:02>
[2018-09-03] MEDS ORDERED: Albuterol-Ipratrop 3 mg / 0.5 (3 ml) UD ONE (15:20)
== END 2018-09-03 16:05 | disposition home or self-care (01) ==
LOC: H.ER 14:55
DX: J45.901 Unspecified asthma with (acute) exacerbation (principal); Z59.0 Homelessness; F17.210 Nicotine dependence, cigarettes, uncomplicated

== ENCOUNTER 2018-10-07 07:54 | Emergency (ER) | payer MEDICARE ==
[2018-10-07 08:07] VITALS: BP 145/78; PULSE 86; RESP 18; TEMP 97.2; O2SAT 98; BMI 17.7
[2018-10-07] MEDS ORDERED: Albuterol-Ipratrop 3 mg / 0.5 (3 ml) UD INH STA (09:08)
--- NOTE | 2018-10-07 10:08 | ED PDOC ---
HPI: CCC, URI, Sore Throat Time Seen by Provider: 10/07/18 08:36 Chief Complaint (Nursing): Cough, Cold, Congestion Chief Complaint (Provider): Cough History Per: Patient History/Exam Limitations: no limitations Onset/Duration Of Symptoms: Days (x1) Current Symptoms Are (Timing): Still Present Associated Symptoms: Cough Additional Complaint(s): 28 year old male, with a past medical history of asthma, presents to the ED complaining of a cough with yellow phlegm since last night. Patient reports having a cough with chest pain and wheezing and states he is asthmatic. He indicates he is has been using his mother's pump because he ran out of his medications. Patient is also a smoker but last asthma attack was years ago. Patient also states he has itchy bumps to his forehead. Denies fever. Of note, patient's mother is currently a patient in the ER and reports his is homeless. PMD: none Past Medical History Reviewed: Historical Data, Nursing Documentation, Vital Signs Vital Signs: Last Vital Signs Temp 97.2 F L 10/07/18 08:06 Pulse 86 10/07/18 08:06 Resp 18 10/07/18 08:06 BP 145/78 10/07/18 08:06 Pulse Ox 98 10/07/18 08:06 - Medical History PMH: Asthma, Bronchitis Denies: HTN (pt denies) - Surgical History Surgical History: No Surg Hx - Family History Family History: States: Other Other Family History: Asthma - Social History Current smoker - smoking cessation education provided: Yes - Immunization History Hx Tetanus Toxoid Vaccination: Yes Hx Influenza Vaccination: No Hx Pneumococcal Vaccination: No - Home Medications Home Medications: Ambulatory Orders Medication Instructions Recorded Advair 250-50 [place] 09/02/18 RX: Prednisone 50 mg PO DAILY #5 tablet 09/03/18 RX: Albuterol HFA [Ventolin HFA 90 2 puff IH [id number] #1 inh 10/07/18 mcg/actuation (8 g)] RX: Azithromycin [Z-Bijan] 250 mg PO ASDIR #6 tab 10/07/18 - Allergies Allergies/Adverse Reactions: Allergies Allergy/AdvReac Type Severity Reaction Status Date / Time cat dander Allergy RASH Verified 09/02/18 02:36 FISH Allergy RASH Verified 09/02/18 02:36 Review of Systems ROS Statement: Except As Marked, All Systems Reviewed And Found Negative Respiratory: Positive for: Cough, Shortness of Breath, Wheezing Skin: Positive for: Other (Itchy bumps to forehead) Physical Exam - Reviewed Nursing Documentation Reviewed: Yes Vital Signs Reviewed: Yes - Physical Exam Appears: Positive for: Non-toxic, No Acute Distress Head Exam: Positive for: ATRAUMATIC, NORMOCEPHALIC Skin: Positive for: Normal Color, Warm, Dry Eye Exam: Positive for: Normal appearance ENT: Positive for: Normal ENT Inspection Neck: Positive for: Normal, Painless ROM Cardiovascular/Chest: Positive for: Regular Rate, Rhythm Respiratory: Positive for: Normal Breath Sounds. Negative for: Wheezing, Respiratory Distress Extremity: Positive for: Normal ROM Neurologic/Psych: Positive for: Alert, Oriented. Negative for: Motor/Sensory Deficits - ECG O2 Sat by Pulse Oximetry: 98 (RA) Pulse Ox Interpretation: Normal - Radiology X-Ray: Interpreted by Me, Viewed By Me X-Ray Interpretation: Infiltrates (RLL?) Medical Decision Making Medical Decision Making: Initial Impression: asthma Initial Plan: --Chest X-ray --Albuterol 3mL INH --Peak flow Scribe Attestation: Documented by Luis Miguel Engel acting as a scribe for Seth Lin MD. Provider Scribe Attestation: All medical record entries made by the Scribe were at my direction and personally dictated by me. I have reviewed the chart and agree that the record accurately reflects my personal performance of the history, physical exam, medical decision making, and the department course for this patient. I have also personally directed, reviewed, and agree with the discharge instructions and disposition. Disposition - Clinical Impression Clinical Impression: Asthma, Pneumonia - Patient ED Disposition Is Patient to be Admitted: No Doctor Will See Patient In The: Office Counseled Patient/Family Regarding: Studies Performed, Diagnosis, Need For Fol lowup - Disposition Referrals: [facility] [Outside] Disposition: Routine/Home Disposition Time: 10:30 Condition: GOOD Additional Instructions: HERMAN TESFAYE, thank you for letting us take care of you today. Your provider was Seth Lin MD and you were treated for WHEEZING, HEAD PAIN. The emergency medical care you received today was directed at your acute symptoms. If you were prescribed any medication, please fill it and take as directed. It may take several days for your symptoms to resolve. Return to the Emergency Department if your symptoms worsen, do not improve, or if you have any other problems. Please contact your doctor or call one of the physicians/clinics you have been referred to that are listed on the Patient Visit Information form that is included in your discharge packet. Bring any paperwork you were given at discharge with you along with any medications you are taking to your follow up visit. Our treatment cannot replace ongoing medical care by a primary care provider outside of the emergency department. Thank you for allowing the [facility] team to be part of your care today. If you had an X-Ray or CT scan: A Radiologist will review the ED reading if any change in treatment is needed we will contact you. If you had a blood, urine, or wound culture: It will take several days for the results, if any change in treatment is needed we will contact you. If you had an STI test: It will take 48 hours for the results. Please call after 1 week if you have not heard back. Prescriptions: RX: Albuterol HFA [Ventolin HFA 90 mcg/actuation (8 g)] 2 puff IH [id number] #1 inh RX: Azithromycin [Z-Bijan] 250 mg PO ASDIR #6 tab Instructions: Pneumonia in Adults, Asthma in Adults
--- NOTE | 2018-10-07 16:26 | RAD ---
Date of service: 10/07/2018 HISTORY: cough chest pain COMPARISON: Chest radiographs 06/20/2018. TECHNIQUE: Chest PA and lateral FINDINGS: LUNGS: Limited volume loss and fibrosis creates increased density to the right of the right heart border at the medial right lung base and is stable. This is identified in prior chest CT 03/21/2015. No infiltrate is appreciated bilaterally in the interval. PLEURA: No significant pleural effusion identified. No pneumothorax apparent. CARDIOVASCULAR: No aortic atherosclerotic calcification present. Normal cardiac size. No pulmonary vascular congestion. OSSEOUS STRUCTURES: No significant abnormalities. VISUALIZED UPPER ABDOMEN: Normal. OTHER FINDINGS: None. IMPRESSION: No interval acute cardiopulmonary disease appreciated.
== END 2018-10-07 10:51 | disposition home or self-care (01) ==
LOC: H.ER 07:54
DX: J45.909 Unspecified asthma, uncomplicated (principal); J18.9 Pneumonia, unspecified organism; F17.200 Nicotine dependence, unspecified, uncomplicated; Z79.899 Other long term (current) drug therapy; Z59.0 Homelessness

== ENCOUNTER 2018-10-14 02:52 | Emergency (ER) | payer MEDICARE ==
[2018-10-14 02:52] VITALS: BMI 17.7
[2018-10-14 03:22] VITALS: BP 96/66; PULSE 88; RESP 18; TEMP 98.1; O2SAT 96
--- NOTE | 2018-10-14 05:33 | ED PDOC ---
HPI: General Adult Time Seen by Provider: 10/14/18 03:23 Chief Complaint (Nursing): Cough, Cold, Congestion Chief Complaint (Provider): Cough, congestion x 1 day History Per: Patient History/Exam Limitations: no limitations Onset/Duration Of Symptoms: Days Have you had recent travel within the past 21 days to any of the following countries: [place], [place], [place] or [place]?: No Current Symptoms Are (Timing): Still Present Additional Complaint(s): 28 yo smoker with history of asthma presents for evaluation of cough since yesterday. No fever/chills. Pt denies throat pain, ear pain, etc. Past Medical History Reviewed: Historical Data, Nursing Documentation, Vital Signs Vital Signs: Last Vital Signs Temp 98.1 F 10/14/18 03:20 Pulse 88 10/14/18 03:20 Resp 18 10/14/18 03:20 BP 96/66 L 10/14/18 03:20 Pulse Ox 96 10/14/18 03:20 - Medical History PMH: Asthma, Bronchitis Denies: HTN (pt denies) - Family History Family History: States: Unknown Family Hx - Immunization History Hx Tetanus Toxoid Vaccination: Yes Hx Influenza Vaccination: No Hx Pneumococcal Vaccination: No - Home Medications Home Medications: Ambulatory Orders Medication Instructions Recorded Advair 250-50 Diskus 09/02/18 Prednisone 50 mg PO DAILY #5 tablet 09/03/18 Albuterol HFA [Ventolin HFA 90 2 puff IH [id number] #1 inh 10/07/18 mcg/actuation (8 g)] Azithromycin [Z-Bijan] 250 mg PO ASDIR #6 tab 10/07/18 - Allergies Allergies/Adverse Reactions: Allergies Allergy/AdvReac Type Severity Reaction Status Date / Time cat dander Allergy RASH Verified 09/02/18 02:36 FISH Allergy RASH Verified 09/02/18 02:36 Review of Systems ROS Statement: Except As Marked, All Systems Reviewed And Found Negative Constitutional: Negative for: Fever, Chills Cardiovascular: Negative for: Chest Pain, Palpitations Respiratory: Positive for: Cough. Negative for: Shortness of Breath, SOB with Exertion, Pleuritic Pain Gastrointestinal: Negative for: Nausea, Vomiting, Abdominal Pain, Diarrhea Genitourinary Male: Negative for: Dysuria Physical Exam - Reviewed Nursing Documentation Reviewed: Yes Vital Signs Reviewed: Yes - Physical Exam Appears: Positive for: Well, Non-toxic, No Acute Distress Head Exam: Positive for: ATRAUMATIC, NORMAL INSPECTION, NORMOCEPHALIC Skin: Positive for: Normal Color, Warm, DRY Eye Exam: Positive for: Normal appearance ENT: Positive for: Normal ENT Inspection Neck: Positive for: Normal, Painless ROM Cardiovascular/Chest: Positive for: Regular Rate, Rhythm. Negative for: Bradycardia, Tachycardia Respiratory: Positive for: Normal Breath Sounds. Negative for: Respiratory Distress Gastrointestinal/Abdominal: Positive for: Normal Exam, Soft Back: Positive for: Normal Inspection Extremity: Positive for: Normal ROM Neurologic/Psych: Positive for: Alert, Oriented - ECG O2 Sat by Pulse Oximetry: 96 Pulse Ox Interpretation: Normal Medical Decision Making Medical Decision Making: Lungs clear. Discussed over the counter medications for symptoms, hydration and rest. Disposition - Clinical Impression Clinical Impression: Common cold - Patient ED Disposition Is Patient to be Admitted: No - Disposition Disposition: Routine/Home Disposition Time: 03:41 Condition: GOOD Instructions: Cough, Runny Nose, and the Common Cold (DC) Forms: [employer] (Serbian)
== END 2018-10-14 04:35 | disposition home or self-care (01) ==
LOC: H.ER 02:52
DX: J00 Acute nasopharyngitis [common cold] (principal); J45.909 Unspecified asthma, uncomplicated

== ENCOUNTER 2018-10-20 03:04 | Emergency (ER) | payer MEDICARE ==
[2018-10-20 03:04] VITALS: BMI 17.7
[2018-10-20 03:24] VITALS: BP 107/65; PULSE 85; RESP 16; TEMP 98.5; O2SAT 96
[2018-10-20] MEDS ORDERED: guaiFENesin DM 100 mg-10 mg/5 ml UD PO STA (03:45)
--- NOTE | 2018-10-20 03:47 | ED PDOC ---
History of Present Illness History of Present Illness: 28 years old male presents to ER for evaluation of wheezing and cough started earlier today. Patient reports he no longer has albuterol at home and he is requesting cough medication. He states on the 17th of this month he had azithromycin. Patient denies any fever, hemoptysis, chest pain and states he is currently without any shortness of breath. PMD: non provided HPI: Influenza Time Seen by Provider: 10/20/18 03:27 Chief Complaint: Cough, Cold, Congestion Chief Complaint (Provider): Cough, Cold, Congestion History Per: Patient Exam Limitations: no limitations Onset/Duration Of Symptoms: Hrs Symptoms include: cough, other (Wheezing). denies: fever, chest pain Past Medical History Reviewed: Historical Data, Nursing Documentation, Vital Signs Vital Signs: Last Vital Signs Temp 98.5 F 10/20/18 03:21 Pulse 85 10/20/18 03:21 Resp 16 10/20/18 03:21 BP 107/65 10/20/18 03:21 Pulse Ox 96 10/20/18 03:21 - Medical History PMH: Asthma, Bronchitis Denies: HTN (pt denies) - Surgical History Surgical History: No Surg Hx - Family History Family History: States: Unknown Family Hx - Immunization History Hx Tetanus Toxoid Vaccination: Yes Hx Influenza Vaccination: No Hx Pneumococcal Vaccination: No - Home Medications Home Medications: Ambulatory Orders Medication Instructions Recorded Advair 250-50 Diskus 09/02/18 Prednisone 50 mg PO DAILY #5 tablet 09/03/18 Albuterol HFA [Ventolin HFA 90 2 puff IH [id number] #1 inh 10/07/18 mcg/actuation (8 g)] Azithromycin [Z-Bijan] 250 mg PO ASDIR #6 tab 10/07/18 Albuterol 0.083% [Albuterol 3 ml IH Q6 PRN #50 neb 10/20/18 Sulfate 3 Ml] - Allergies Allergies/Adverse Reactions: Allergies Allergy/AdvReac Type Severity Reaction Status Date / Time cat dander Allergy RASH Verified 09/02/18 02:36 FISH Allergy RASH Verified 09/02/18 02:36 Review of Systems ROS Statement: Except As Marked, All Systems Reviewed And Found Negative Constitutional: Negative for: Fever Cardiovascular: Negative for: Chest Pain Respiratory: Positive for: Wheezing. Negative for: Shortness of Breath, Hemoptysis Physical Exam - Reviewed Nursing Documentation Reviewed: Yes Vital Signs Reviewed: Yes - Physical Exam Appears: Positive for: Non-toxic, No Acute Distress Head Exam: Positive for: ATRAUMATIC, NORMOCEPHALIC Skin: Positive for: Normal Color, Warm, Dry Eye Exam: Positive for: Normal appearance, EOMI, PERRL Neck: Positive for: Normal, Painless ROM, Supple Cardiovascular/Chest: Positive for: Regular Rate, Rhythm. Negative for: Murmur Respiratory: Positive for: Normal Breath Sounds. Negative for: Wheezing Gastrointestinal/Abdominal: Positive for: Normal Exam, Soft. Negative for: Tenderness Extremity: Positive for: Normal ROM. Negative for: Pedal Edema, Deformity Neurologic/Psych: Positive for: Alert, Oriented (x3), Other (Speaks full sentences) Medical Decision Making Medical Decision Making: Time: 344 Initial Plan: --Robitussin 5 ml PO ----- Scribe Attestation: Documented by Elsie Cortés, acting as a scribe for IMAN Bellamy. Provider Scribe Attestation: All medical record entries made by the Scribe were at my direction and person ally dictated by me. I have reviewed the chart and agree that the record accurately reflects my personal performance of the history, physical exam, medical decision making, and the department course for this patient. I have also personally directed, reviewed, and agree with the discharge instructions and disposition. - ECG O2 Sat by Pulse Oximetry: 96 (RA) Pulse Ox Interpretation: Normal Disposition - Clinical Impression Clinical Impression: Cough - Patient ED Disposition Is Patient to be Admitted: No - Disposition Referrals: [facility] [Outside] Disposition: Routine/Home Disposition Time: 03:46 Condition: STABLE Additional Instructions: GET YOUR PRESCRIPTION FOR AZITHROMYCIN (ANTIBIOTIC) FOLLOW UP WITH YOUR DOCTOR FOR FURTHER EVALUATION RETURN TO ED IMMEDIATELY IF SYMPTOMS WORSEN HERMAN TESFAYE, thank you for letting us take care of you today. Your provider was Tl Hall MD and you were treated for COUGH. The emergency medical care you received today was directed at your acute symptoms. If you were prescribed any medication, please fill it and take as directed. It may take several days for your symptoms to resolve. Return to the Emergency Department if your symptoms worsen, do not improve, or if you have any other problems. Please contact your doctor or call one of the physicians/clinics you have been referred to that are listed on the Patient Visit Information form that is included in your discharge packet. Bring any paperwork you were given at discharge with you along with any medications you are taking to your follow up visit. Our treatment cannot replace ongoing medical care by a primary care provider outside of the emergency department. Thank you for allowing the [email or web address] team to be part of your care today. If you had an X-Ray or CT scan: A Radiologist will review the ED reading if any change in treatment is needed we will contact you. If you had a blood, urine, or wound culture: It will take several days for the results, if any change in treatment is needed we will contact you. If you had an STI test: It will take 48 hours for the results. Please call after 1 week if you have not heard back. Prescriptions: Albuterol 0.083% [Albuterol Sulfate 3 Ml] 3 ml IH Q6 PRN #50 neb PRN Reason: Wheezing Instructions: Cough, Adult (DC) Forms: [employer] (Armenian) Print Language: MOZAMBICAN
[2018-10-20] MEDS ORDERED: guaiFENesin 100 mg/5 ml Syrup UD ONE (03:52)
== END 2018-10-20 04:04 | disposition home or self-care (01) ==
LOC: H.ER 03:04
DX: R05 Cough (principal)

== ENCOUNTER 2018-10-25 21:06 | Emergency (ER) | payer MEDICARE ==
[2018-10-25 21:06] VITALS: BMI 17.7
[2018-10-25 21:53] VITALS: BP 113/68; PULSE 78; RESP 16; TEMP 97.6; O2SAT 98
[2018-10-25] MEDS ORDERED: Albuterol 0.083% Inhal Sol (2.5 mg/3 mL) UD INH STA (21:58)
[2018-10-25] MEDS ORDERED: guaiFENesin DM 100 mg-10 mg/5 ml UD PO STA (22:03)
--- NOTE | 2018-10-25 22:03 | ED PDOC ---
HPI: Influenza Time Seen by Provider: 10/25/18 21:54 Chief Complaint: Cough, Cold, Congestion Past Medical History Vital Signs: Last Vital Signs Temp 97.6 F 10/25/18 21:48 Pulse 78 10/25/18 21:48 Resp 16 10/25/18 21:48 BP 113/68 10/25/18 21:48 Pulse Ox 98 10/25/18 21:48 - Medical History PMH: Asthma, Bronchitis Denies: HTN (pt denies) - Family History Family History: States: Unknown Family Hx - Immunization History Hx Tetanus Toxoid Vaccination: Yes Hx Influenza Vaccination: No Hx Pneumococcal Vaccination: No - Home Medications Home Medications: Ambulatory Orders Medication Instructions Recorded Advair 250-50 Diskus 09/02/18 Prednisone 50 mg PO DAILY #5 tablet 09/03/18 Albuterol HFA [Ventolin HFA 90 2 puff IH [id number] #1 inh 10/07/18 mcg/actuation (8 g)] Azithromycin [Z-Bijan] 250 mg PO ASDIR #6 tab 10/07/18 Albuterol 0.083% [Albuterol 3 ml IH Q6 PRN #50 neb 10/20/18 Sulfate 3 Ml] - Allergies Allergies/Adverse Reactions: Allergies Allergy/AdvReac Type Severity Reaction Status Date / Time cat dander Allergy RASH Verified 09/02/18 02:36 FISH Allergy RASH Verified 09/02/18 02:36 - ECG O2 Sat by Pulse Oximetry: 98 Disposition - Disposition
[2018-10-25] MEDS ORDERED: guaiFENesin 100 mg/5 ml Syrup UD ONE (22:07)
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
== END 2018-10-25 22:46 | disposition home or self-care (01) ==
LOC: H.ER 21:06
DX: J45.909 Unspecified asthma, uncomplicated (principal); S70.01XA Contusion of right hip, initial encounter; Y04.0XXA Assault by unarmed brawl or fight, initial encounter; Y92.89 Other specified places as the place of occurrence of the external cause

== ENCOUNTER 2019-01-06 03:27 | Emergency (ER) | payer MEDICARE ==
[2019-01-06 03:27] VITALS: BMI 17.7
[2019-01-06 03:55] VITALS: O2SAT 98
[2019-01-06] MEDS ORDERED: Albuterol-Ipratrop 3 mg / 0.5 (3 ml) UD INH STA ×2 (04:19)
[2019-01-06] MEDS ORDERED: Albuterol-Ipratrop 3 mg / 0.5 (3 ml) UD ONE (04:53)
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
[2019-01-06 07:14] VITALS: BP 116/59; PULSE 77; RESP 16; TEMP 98.1
== END 2019-01-06 07:14 | disposition home or self-care (01) ==
LOC: H.ER 03:27
DX: J45.901 Unspecified asthma with (acute) exacerbation (principal); Z91.14 Patient's other noncompliance with medication regimen

== ENCOUNTER 2019-01-21 03:38 | Emergency (ER) | payer SELFPAY ==
[2019-01-21 03:39] VITALS: BMI 17.7
[2019-01-21 04:48] VITALS: BP 106/64; PULSE 78; TEMP 97.8; O2SAT 97
[2019-01-21] MEDS ORDERED: Albuterol-Ipratrop 3 mg / 0.5 (3 ml) UD INH STA ×2 (05:59→06:00)
[2019-01-21] MEDS ORDERED: Albuterol-Ipratrop 3 mg / 0.5 (3 ml) UD ONE (06:14)
--- NOTE | 2019-01-21 06:27 | ED PDOC ---
HPI: SOB/CHF/COPD Time Seen by Provider: 01/21/19 05:57 Chief Complaint (Nursing): Respiratory Distress Chief Complaint (Provider): Respiratory Distress History Per: Patient History/Exam Limitations: no limitations Onset/Duration Of Symptoms: Hrs Current Symptoms Are (Timing): Still Present Additional Complaint(s): 29 year old male presents to the ED for an evaluation of asthma exacerbation onset today. He is unsure of the cause of the trigger. He reports of cough. Otherwise, he denies intubation, fever, chest pain or vomiting. PMD: no family provider Past Medical History Reviewed: Historical Data, Nursing Documentation, Vital Signs Vital Signs: Last Vital Signs Temp 97.8 F 01/21/19 04:48 Pulse 78 01/21/19 04:48 Resp 17 01/21/19 04:48 BP 106/64 01/21/19 04:48 Pulse Ox 97 01/21/19 04:48 - Medical History PMH: Asthma, Bronchitis Denies: HTN (pt denies), Chronic Kidney Disease - Family History Family History: States: Unknown Family Hx - Immunization History Hx Tetanus Toxoid Vaccination: Yes Hx Pneumococcal Vaccination: No - Home Medications Home Medications: Ambulatory Orders Medication Instructions Recorded Advair 250-50 Diskus 09/02/18 Prednisone 50 mg PO DAILY #5 tablet 09/03/18 Albuterol HFA [Ventolin HFA 90 2 puff IH [id number] #1 inh 10/07/18 mcg/actuation (8 g)] Azithromycin [Z-Bijan] 250 mg PO ASDIR #6 tab 10/07/18 Albuterol 0.083% [Albuterol 3 ml IH Q6 PRN #50 neb 10/20/18 Sulfate 3 Ml] Albuterol HFA [Ventolin HFA 90 2 puff IH [id number] PRN #120 puff 10/25/18 mcg/actuation (8 g)] Promethazine DM [Phenergan DM 5 - 10 ml PO Q8 PRN #120 ml 10/25/18 Syrup] Albuterol HFA [Ventolin HFA 90 2 puff IH [id number] #1 puff 01/06/19 mcg/actuation (8 g)] Albuterol HFA [Ventolin HFA 90 2 puff IH [id number] #1 pump 01/21/19 mcg/actuation (8 g)] Prednisone 50 mg PO DAILY #4 tablet 01/21/19 - Allergies Allergies/Adverse Reactions: Allergies Allergy/AdvReac Type Severity Reaction Status Date / Time cat dander Allergy RASH Verified 01/21/19 04:48 FISH Allergy RASH Verified 01/21/19 04:48 Review of Systems ROS Statement: Except As Marked, All Systems Reviewed And Found Negative Constitutional: Negative for: Fever Cardiovascular: Negative for: Chest Pain Respiratory: Positive for: Cough Gastrointestinal: Negative for: Vomiting Physical Exam - Reviewed Nursing Documentation Reviewed: Yes Vital Signs Reviewed: Yes - Physical Exam Appears: Positive for: Well (sleeping comfortably), Non-toxic, No Acute Distress Head Exam: Positive for: ATRAUMATIC, NORMAL INSPECTION, NORMOCEPHALIC Skin: Positive for: Normal Color, Warm, DRY Eye Exam: Positive for: EOMI, Normal appearance, PERRL ENT: Positive for: Normal ENT Inspection Neck: Positive for: Normal, Painless ROM Cardiovascular/Chest: Positive for: Regular Rate, Rhythm. Negative for: Murmur Respiratory: Positive for: Normal Breath Sounds. Negative for: Wheezing Gastrointestinal/Abdominal: Positive for: Normal Exam, Soft. Negative for: Tenderness Back: Positive for: Normal Inspection Extremity: Positive for: Normal ROM. Negative for: Tenderness, Pedal Edema, Deformity Neurologic/Psych: Positive for: Alert, Oriented (x3) - ECG O2 Sat by Pulse Oximetry: 97 (RA) Pulse Ox Interpretation: Normal Medical Decision Making Medical Decision Making: Time: 558 Plan: Albuterol 3ml predniSONE 60mg Peak flow pre/post tx Reevaluation Vitals are stable. Symptoms improved and lungs sounds are clear. Upon provider reevaluation patient is feeling better, is medically stable, and requires no further treatment in the ED at this time. Patient will be discharged home with prednisone. Counseling was provided and all questions were answered regarding diagnosis and need for follow up with PMD. There is agreement to discharge plan. Return if symptoms persist or worsen. Scribe Attestation: Documented by Tameka William, acting as a scribe for Graciela Avendano MD Provider Scribe Attestation: All medical record entries made by the Scribe were at my direction and personally dictated by me. I have reviewed the chart and agree that the record accurately reflects my personal performance of the history, physical exam, medical decision making, and the department course for this patient. I have also personally directed, reviewed, and agree with the discharge instructions and disposition. Disposition - Clinical Impression Clinical Impression: Respiratory failure, Asthma attack - Disposition Referrals: [facility] [Outside] Condition: IMPROVED Additional Instructions: Take prednisone daily for 4 days. Use pump as needed. Follow up with primary medical doctor. Prescriptions: Albuterol HFA [Ventolin HFA 90 mcg/actuation (8 g)] 2 puff IH [id number] #1 pump Prednisone 50 mg PO DAILY #4 tablet Instructions: Asthma, Adult (DC) Forms: [facility] (Singaporean) Print Language: ITALIAN
[2019-01-21 06:49] VITALS: RESP 18
== END 2019-01-21 06:53 | disposition home or self-care (01) ==
LOC: H.ER 03:38
DX: J96.90 Respiratory failure, unspecified, unspecified whether with hypoxia or hypercapnia (principal); J45.901 Unspecified asthma with (acute) exacerbation; J44.9 Chronic obstructive pulmonary disease, unspecified; Z79.899 Other long term (current) drug therapy

== ENCOUNTER 2019-01-30 04:52 | Emergency (ER) | payer MEDICARE ==
[2019-01-30 05:09] VITALS: BMI 20.7
--- NOTE | 2019-01-30 05:19 | ED PDOC ---
HPI: Skin/Bite Injury Time Seen by Provider: 01/30/19 05:01 Chief Complaint (Nursing): Abnormal Skin Integrity Chief Complaint (Provider): abrasion History Per: Patient History/Exam Limitations: no limitations Onset/Duration Of Symptoms: Days Current Symptoms Are (Timing): Still Present Additional Complaint(s): 29 y/o male presents for evaluation of right hand abrasion x 1 week. Patient states his hands have been dry and itchy and admits to excessive scratching. Denies fever, pain/drainage/swelling from site. Patient also requesting nebulizer treatment for his asthma Past Medical History Reviewed: Historical Data, Nursing Documentation, Vital Signs Vital Signs: Last Vital Signs Temp 98.6 F 01/30/19 05:10 Pulse 86 01/30/19 05:10 Resp 18 01/30/19 05:10 BP 130/89 01/30/19 05:10 Pulse Ox 99 01/30/19 05:10 - Medical History PMH: Asthma, Bronchitis Denies: HTN (pt denies), Chronic Kidney Disease - Family History Family History: States: Unknown Family Hx - Immunization History Hx Tetanus Toxoid Vaccination: Yes Hx Pneumococcal Vaccination: No - Home Medications Home Medications: Ambulatory Orders Medication Instructions Recorded Advair 250-50 Diskus 09/02/18 Prednisone 50 mg PO DAILY #5 tablet 09/03/18 Albuterol HFA [Ventolin HFA 90 2 puff IH [id number] #1 inh 10/07/18 mcg/actuation (8 g)] Azithromycin [Z-Bijan] 250 mg PO ASDIR #6 tab 10/07/18 Albuterol 0.083% [Albuterol 3 ml IH Q6 PRN #50 neb 10/20/18 Sulfate 3 Ml] Albuterol HFA [Ventolin HFA 90 2 puff IH [id number] PRN #120 puff 10/25/18 mcg/actuation (8 g)] Promethazine DM [Phenergan DM 5 - 10 ml PO Q8 PRN #120 ml 10/25/18 Syrup] Albuterol HFA [Ventolin HFA 90 2 puff IH [id number] #1 puff 01/06/19 mcg/actuation (8 g)] Albuterol HFA [Ventolin HFA 90 2 puff IH [id number] #1 pump 01/21/19 mcg/actuation (8 g)] Prednisone 50 mg PO DAILY #4 tablet 01/21/19 Albuterol HFA [Ventolin HFA 90 1 puff IH Q4 PRN #1 inh 01/30/19 mcg/actuation (8 g)] - Allergies Allergies/Adverse Reactions: Allergies Allergy/AdvReac Type Severity Reaction Status Date / Time cat dander Allergy RASH Verified 01/30/19 05:09 FISH Allergy RASH Verified 01/30/19 05:09 Review of Systems ROS Statement: Except As Marked, All Systems Reviewed And Found Negative Musculoskeletal: Positive for: Hand Pain Physical Exam - Reviewed Nursing Documentation Reviewed: Yes Vital Signs Reviewed: Yes - Physical Exam Appears: Positive for: Well, Non-toxic, No Acute Distress Head Exam: Positive for: ATRAUMATIC, NORMAL INSPECTION, NORMOCEPHALIC Skin: Positive for: Rash (diffuse dry skin dorsal hands overlying MCPs with cracked/open skin left hand 5th MCP. No swelling, drainage, warmth noted. FROM. ) Cardiovascular/Chest: Positive for: Regular Rate, Rhythm Respiratory: Positive for: Wheezing (scant expiratory wheezing). Negative for: Accessory Muscle Use, Respiratory Distress Extremity: Positive for: Normal ROM Neurological/Psych: Positive for: Awake, Alert, Oriented - ECG O2 Sat by Pulse Oximetry: 99 - Progress ED Course And Treament: -duoneb x 2 Bacitracin applied to hand abrasion Patient educated on need to moisturize hands with lotion Rx Albuterol given Follow up PMD within 2-3 days Return precautions given Disposition - Clinical Impression Clinical Impression: Asthma, Cracked skin, Dry skin - Patient ED Disposition Is Patient to be Admitted: No Counseled Patient/Family Regarding: Diagnosis, Need For Followup, Rx Given - Disposition Disposition: Routine/Home Disposition Time: 05:23 Condition: IMPROVED Prescriptions: Albuterol HFA [Ventolin HFA 90 mcg/actuation (8 g)] 1 puff IH Q4 PRN #1 inh PRN Reason: Wheezing Instructions: Asthma in Adults
[2019-01-30] MEDS: Albuterol-Ipratrop 3 mg / 0.5 (3 ml) UD IH STA ×2 (05:28)
[2019-01-30 06:09] VITALS: BP 100/70; PULSE 89; RESP 16; TEMP 98; O2SAT 95
== END 2019-01-30 06:15 | disposition home or self-care (01) ==
LOC: H.ER 04:52
DX: J45.909 Unspecified asthma, uncomplicated (principal); L98.8 Other specified disorders of the skin and subcutaneous tissue

== ENCOUNTER 2019-02-11 04:55 | Emergency (ER) | payer SELFPAY ==
[2019-02-11 04:55] VITALS: BMI 20.7
[2019-02-11 05:14] VITALS: RESP 16; TEMP 98.7
[2019-02-11] MEDS ORDERED: Albuterol-Ipratrop 3 mg / 0.5 (3 ml) UD INH STA (06:02)
--- NOTE | 2019-02-11 06:06 | ED PDOC ---
Upper Extremity Pain/Injury Time Seen by Provider: 02/11/19 05:57 Chief Complaint (Nursing): Upper Extremity Problem/Injury Chief Complaint (Provider): Upper Extremity Problem/Injury History Per: Patient History/Exam Limitations: no limitations Onset/Duration Of Symptoms: Unknown Current Symptoms Are (Timing): Still Present Additional Complaint(s): 29 y/o undomiciled male with a PMHx of Asthma presents to the ED complaining of a scrape to the left hand and requesting a prescription refill for his albuterol pump. Patient notes he was sitting in the waiting room and was made to register after refusing to leave the ED. Patient has already been seen for the superficial abrasion on the left hand. PMD: no provider Past Medical History Reviewed: Historical Data, Nursing Documentation, Vital Signs Vital Signs: Last Vital Signs Temp 98.7 F 02/11/19 05:13 Pulse 87 02/11/19 05:13 Resp 16 02/11/19 05:13 BP 139/86 02/11/19 05:13 Pulse Ox 98 02/11/19 05:13 - Medical History PMH: Asthma, Bronchitis Denies: HTN (pt denies), Chronic Kidney Disease - Surgical History Surgical History: No Surg Hx - Family History Family History: States: Unknown Family Hx - Social History Current smoker - smoking cessation education provided: Yes - Immunization History Hx Tetanus Toxoid Vaccination: Yes Hx Pneumococcal Vaccination: No - Home Medications Home Medications: Ambulatory Orders Medication Instructions Recorded Advair 250-50 Diskus 09/02/18 Prednisone 50 mg PO DAILY #5 tablet 09/03/18 Albuterol HFA [Ventolin HFA 90 2 puff IH [id number] #1 inh 10/07/18 mcg/actuation (8 g)] Azithromycin [Z-Bijan] 250 mg PO ASDIR #6 tab 10/07/18 Albuterol 0.083% [Albuterol 3 ml IH Q6 PRN #50 neb 10/20/18 Sulfate 3 Ml] Albuterol HFA [Ventolin HFA 90 2 puff IH [id number] PRN #120 puff 10/25/18 mcg/actuation (8 g)] Promethazine DM [Phenergan DM 5 - 10 ml PO Q8 PRN #120 ml 10/25/18 Syrup] Albuterol HFA [Ventolin HFA 90 2 puff IH [id number] #1 puff 01/06/19 mcg/actuation (8 g)] Albuterol HFA [Ventolin HFA 90 2 puff IH [id number] #1 pump 01/21/19 mcg/actuation (8 g)] Prednisone 50 mg PO DAILY #4 tablet 01/21/19 Albuterol HFA [Ventolin HFA 90 1 puff IH Q4 PRN #1 inh 01/30/19 mcg/actuation (8 g)] Albuterol HFA [Ventolin HFA 90 1 - 2 puff IH Q6 PRN #1 inhaler 02/11/19 mcg/actuation (8 g)] - Allergies Allergies/Adverse Reactions: Allergies Allergy/AdvReac Type Severity Reaction Status Date / Time cat dander Allergy RASH Verified 01/30/19 05:09 FISH Allergy RASH Verified 01/30/19 05:09 Review of Systems Musculoskeletal: Positive for: Hand Pain Physical Exam - Reviewed Nursing Documentation Reviewed: Yes Vital Signs Reviewed: Yes - Physical Exam Appears: Positive for: No Acute Distress Head Exam: Positive for: ATRAUMATIC, NORMOCEPHALIC Skin: Positive for: Normal Color, Warm, Dry Eye Exam: Positive for: Normal appearance, EOMI, PERRL Neck: Positive for: Normal, Painless ROM, Supple Cardiovascular/Chest: Positive for: Regular Rate, Rhythm. Negative for: Murmur Respiratory: Positive for: Normal Breath Sounds. Negative for: Respiratory Distress Extremity: Positive for: Normal ROM, Other (Superficial abrasion noted to the left 3rd and 4th metacarpal surface) Neurological/Psych: Positive for: Awake, Alert - ECG O2 Sat by Pulse Oximetry: 98 (RA) Pulse Ox Interpretation: Normal Medical Decision Making Medical Decision Making: Time: 601 Impression: 29 y/o male with abrasions to the left hand Plan: -- Duoneb 3mg/0.5mg 3ml (UD) 3ml INH -- Peak Flow Pre/Post Tx Time: 609 -- Patient is stable for discharge home. Scribe Attestation: Documented by Octavio Fitzpatrick, acting as a scribe Chaitanya Rivas MD. Provider Scribe Attestation: All medical record entries made by the Scribe were at my direction and personally dictated by me. I have reviewed the chart and agree that the record accurately reflects my personal performance of the history, physical exam, medical decision making, and the department course for this patient. I have also personally directed, reviewed, and agree with the discharge instructions and disposition. Disposition - Clinical Impression Clinical Impression: Hand pain, Asthma - Patient ED Disposition Is Patient to be Admitted: No Counseled Patient/Family Regarding: Studies Performed, Diagnosis, Rx Given - Disposition Disposition: Routine/Home Disposition Time: 06:10 Condition: STABLE Prescriptions: Albuterol HFA [Ventolin HFA 90 mcg/actuation (8 g)] 1 - 2 puff IH Q6 PRN #1 inhaler PRN Reason: Shortness Of Breath Instructions: Asthma in Adults Forms: [facility] ([place])
[2019-02-11] MEDS ORDERED: Albuterol-Ipratrop 3 mg / 0.5 (3 ml) UD ONE (06:18)
[2019-02-11 07:36] VITALS: BP 131/60; PULSE 72; O2SAT 99
== END 2019-02-11 07:05 | disposition home or self-care (01) ==
LOC: H.ER 04:55
DX: J45.909 Unspecified asthma, uncomplicated (principal); S60.512A Abrasion of left hand, initial encounter; X58.XXXA Exposure to other specified factors, initial encounter; Y92.89 Other specified places as the place of occurrence of the external cause

== ENCOUNTER 2019-03-21 01:46 | Emergency (ER) | payer SELFPAY ==
[2019-03-21 01:46] VITALS: BMI 20.7
[2019-03-21 02:15] VITALS: RESP 17
[2019-03-21] MEDS ORDERED: Albuterol-Ipratrop 3 mg / 0.5 (3 ml) UD INH STA (02:39)
[2019-03-21] MEDS ORDERED: Albuterol-Ipratrop 3 mg / 0.5 (3 ml) UD ONE (02:49)
--- NOTE | 2019-03-21 04:07 | ED PDOC ---
HPI: General Adult Time Seen by Provider: 03/21/19 01:59 Chief Complaint (Nursing): Abnormal Skin Integrity Chief Complaint (Provider): Abnormal Skin Integrity History Per: Patient History/Exam Limitations: no limitations Current Symptoms Are (Timing): Still Present Additional Complaint(s): 29 year old male with a history of asthma presents to the ED for evaluation of wheezing and itching on his right elbow. Patient reports he feels as though he is wheezing and did not have access to his pump. PMD: none provided Past Medical History Reviewed: Historical Data, Nursing Documentation, Vital Signs Vital Signs: Last Vital Signs Temp 97.9 F 03/21/19 01:55 Pulse 96 H 03/21/19 01:55 Resp 17 03/21/19 01:55 BP 109/74 03/21/19 01:55 Pulse Ox 98 03/21/19 01:55 Primary Care Provider: FAMILY PROVIDER,NO - Medical History PMH: Asthma, Bronchitis Denies: HTN (pt denies), Chronic Kidney Disease - Surgical History Surgical History: No Surg Hx - Family History Family History: States: Unknown Family Hx - Social History Current smoker - smoking cessation education provided: Yes (Heavy Smoker ) - Immunization History Hx Tetanus Toxoid Vaccination: Yes Hx Pneumococcal Vaccination: No - Home Medications Home Medications: Ambulatory Orders Medication Instructions Recorded Advair 250-50 Diskus 09/02/18 Prednisone 50 mg PO DAILY #5 tablet 09/03/18 Albuterol HFA [Ventolin HFA 90 2 puff IH [id number] #1 inh 10/07/18 mcg/actuation (8 g)] Azithromycin [Z-Bijan] 250 mg PO ASDIR #6 tab 10/07/18 Albuterol 0.083% [Albuterol 3 ml IH Q6 PRN #50 neb 10/20/18 Sulfate 3 Ml] Albuterol HFA [Ventolin HFA 90 2 puff IH [id number] PRN #120 puff 10/25/18 mcg/actuation (8 g)] Promethazine DM [Phenergan DM 5 - 10 ml PO Q8 PRN #120 ml 10/25/18 Syrup] Albuterol HFA [Ventolin HFA 90 2 puff IH [id number] #1 puff 01/06/19 mcg/actuation (8 g)] Albuterol HFA [Ventolin HFA 90 2 puff IH [id number] #1 pump 01/21/19 mcg/actuation (8 g)] Prednisone 50 mg PO DAILY #4 tablet 01/21/19 Albuterol HFA [Ventolin HFA 90 1 puff IH Q4 PRN #1 inh 01/30/19 mcg/actuation (8 g)] Albuterol HFA [Ventolin HFA 90 1 - 2 puff IH Q6 PRN #1 inhaler 02/11/19 mcg/actuation (8 g)] - Allergies Allergies/Adverse Reactions: Allergies Allergy/AdvReac Type Severity Reaction Status Date / Time cat dander Allergy RASH Verified 01/30/19 05:09 FISH Allergy RASH Verified 01/30/19 05:09 Review of Systems ROS Statement: Except As Marked, All Systems Reviewed And Found Negative Respiratory: Positive for: Wheezing Skin: Positive for: Other (itchy right elbow) Physical Exam - Reviewed Nursing Documentation Reviewed: Yes Vital Signs Reviewed: Yes - Physical Exam Appears: Positive for: Well, No Acute Distress Head Exam: Positive for: ATRAUMATIC, NORMAL INSPECTION, NORMOCEPHALIC Skin: Positive for: Normal Color Eye Exam: Positive for: EOMI, Normal appearance, PERRL Cardiovascular/Chest: Positive for: Regular Rate, Rhythm. Negative for: Murmur Respiratory: Positive for: Wheezing (scant wheezing). Negative for: Respiratory Distress Extremity: Positive for: Other (Right upper extremity shows dry skin). Negative for: Deformity Neurological/Psych: Positive for: Awake, Alert, Normal Tone, Oriented (x 3). Negative for: Motor/Sensory Deficits - ECG O2 Sat by Pulse Oximetry: 98 (RA) Pulse Ox Interpretation: Normal Medical Decision Making Medical Decision Makin:39 Impression: mild asthma exacerbation and dry skin Initial Plan: --Duoneb 3 ml INH Scribe Attestation: Documented by Tarsha Gupta, acting as a scribe Guillaume Hall MD Provider Scribe Attestation: All medical record entries made by the Scribe were at my direction and personally dictated by me. I have reviewed the chart and agree that the record accurately reflects my personal performance of the history, physical exam, medical decision making, and the department course for this patient. I have also personally directed, reviewed, and agree with the discharge instructions and disposition. Disposition - Clinical Impression Clinical Impression: Asthma - Patient ED Disposition Is Patient to be Admitted: No Counseled Patient/Family Regarding: Diagnosis, Need For Followup - Disposition Referrals: [facility] [Outside] Disposition: Routine/Home Disposition Time: 04:21 Condition: IMPROVED Instructions: Asthma in Adults Forms: [facility] (French)
[2019-03-21 04:39] VITALS: BP 111/75; PULSE 84; TEMP 98.1; O2SAT 99
== END 2019-03-21 04:34 | disposition home or self-care (01) ==
LOC: H.ER 01:46
DX: J45.901 Unspecified asthma with (acute) exacerbation (principal)